=== PATIENT | male | born 1975 | race Two or more races ===

== ENCOUNTER 2019-01-17 11:45 | Emergency (ER) | payer OTHER ==
[~2019-01-17] VITALS: Ht 177.8 cm; Wt 95.9 kg
[2019-01-17] MEDS ORDERED: COLCHICINE 0.6 MG TABLET PO ONE (13:30)
[2019-01-17] MEDS ORDERED: COLCHICINE 0.6 MG TABLET ONE (14:35)
[2019-01-17 14:47] VITALS: BP 133/89
--- NOTE | 2019-01-17 14:53 | NUR ---
pt given dc instructions and script. science interpreter utilized for dc instructions. pt educated regarding colchicine rx. pt amb to dc desk with steady gait, nadn at dc.
== END 2019-01-17 14:54 | disposition home or self-care (01) ==
LOC: ED 14:48
DX: M10.9 Gout, unspecified (principal); M13.172 Monoarthritis, not elsewhere classified, left ankle and foot; F17.210 Nicotine dependence, cigarettes, uncomplicated
CPT/HCPCS: 99283